=== PATIENT | female | born 1960 | race Two or more races ===

== ENCOUNTER → 2020-10-12 | Day surgery (SDC) | payer OTHER ==
[~2020-10-12] MED LIST: CLONAZEPAM1 MG PO; CRESTOR20 MG PO; D3 + K2 DOTS 11 EACH PO; DEPAKOTE ER500 MG PO; PRISTIQ ER50 MG PO; SYNTHROID50 MCG PO
== END | disposition home or self-care (01) ==
LOC: ADM 10-10 09:45 → CIR.AMB 08:52
PROVIDERS: ATTEND Specialist
DX: N84.0 Polyp of corpus uteri (principal)

== ENCOUNTER 2021-02-14 05:35 | Inpatient (IN) | payer OTHER ==
[~2021-02-14] VITALS: Ht 165.1 cm; Wt 77.1 kg
[~2021-02-14 05:35] MED LIST changes: +MACRODANTIN50 MG PO
[2021-02-16] MEDS ORDERED: SIMETHICONE125 M1 PO (12:29)
[2021-02-16] MEDS ORDERED: DOCUSATE SODIU100 MG PO (12:29)
== END 2021-02-16 13:01 | disposition home or self-care (01) | DRG 743 ==
LOC: OB/GYN 05:35 → O/R 05:35 → OB/GYN 07:00
PROVIDERS: ADMIT Specialist; ATTEND Specialist
PROC: 0UT2FZZ Resection of Bilateral Ovaries, Via Natural or Artificial Opening With Percutaneous Endoscopic Assistance (ICD-10-PCS; 2021-02-14)
PROC: 0UT7FZZ Resection of Bilateral Fallopian Tubes, Via Natural or Artificial Opening With Percutaneous Endoscopic Assistance (ICD-10-PCS; 2021-02-14)
PROC: 0UT9FZZ Resection of Uterus, Via Natural or Artificial Opening With Percutaneous Endoscopic Assistance (ICD-10-PCS; principal; 2021-02-14 07:00)
DX: N72 Inflammatory disease of cervix uteri (principal); N80.0 Endometriosis of uterus; D25.1 Intramural leiomyoma of uterus; N83.312 Acquired atrophy of left ovary; N83.311 Acquired atrophy of right ovary; E03.9 Hypothyroidism, unspecified; N95.0 Postmenopausal bleeding